=== PATIENT | female | born 1970 | race Native Hawaiian/Other Pacific Islander ===

== ENCOUNTER 2022-03-25 09:21 | Outpatient (CLI) | payer BC, SELFPAY ==
[2022-03-25 15:03] LABS: Chloride* 101 mmol/L (96-114); Potassium* 4.2 mmol/L (3.6-5.1); Sodium* 134 mmol/L (135-149)
[2022-03-25 15:05] LABS: Cholesterol* 209 mg/dL (90-199)
[2022-03-25 15:06] LABS: Blood Urea Nitrogen* 16 mg/dL (7-30); Calcium* 9.5 mg/dL (8.4-10.6); Carbon Dioxide* 27 mmol/L (20-32); Creatinine* 0.5 mg/dL (0.5-1.5); Estimated Glomerular Filt Rate 112 ml/min; Glucose* 181 mg/dL (60-115); HDL Cholesterol* 78 mg/dL (>=50); LDL Cholesterol Calculated 105 mg/dL (<100); Triglycerides* 128 mg/dL (40-149)
== END 2022-03-25 09:22 | disposition home or self-care (01) ==
LOC: LONREF 09:22
PROVIDERS: PCP Family Medicine; Visit Provider Family Medicine
DX: E78.5 Hyperlipidemia, unspecified (principal); E11.9 Type 2 diabetes mellitus without complications; I10 Essential (primary) hypertension
CPT/HCPCS: 80048; 80061

== ENCOUNTER 2023-02-19 14:33 | Outpatient (CLI) | payer BC, SELFPAY ==
--- NOTE | 2023-02-19 15:20 | CRLHL7_ITS ---
For Patients: As a result of the Cures Act, medical imaging exams and procedure reports are released immediately into your electronic medical record. You may view this report before your referring provider. If you have questions, please contact your health care provider. BILATERAL SCREENING MAMMOGRAM WITH COMPUTER-AIDED DETECTION AND TOMOSYNTHESIS TECHNIQUE: CC and MLO views were obtained. These mammographic images have been obtained using full-field digital technique. These mammographic images were interpreted with the benefit of computer-aided detection. Breast Tomosynthesis was used in this interpretation. COMPARISON FILM: 09/03/20, 06/25/16, 11/10/2014. FINDINGS: The breasts are heterogeneously dense, which may obscure small masses IMPRESSION: There is no radiographic evidence for malignancy. ASSESSMENT: BI-RADS Category 2: Benign RECOMMENDATION: Routine screening mammogram in 1 year. A lay language report of this examination will be provided to the patient. Yonathan Catalan M.D. Diagnostic/Nuclear Medicine Radiologist [email or web address] [place]/Dictated by: Yonathan Catalan MD @ 02/20/2023 9:12:00 AM (Electronically Signed)
== END 2023-02-19 14:34 | disposition home or self-care (01) ==
LOC: MAMMO 14:34
PROVIDERS: PCP Family Medicine; Visit Provider Family Medicine
DX: Z12.31 Encounter for screening mammogram for malignant neoplasm of breast (principal); R92.2 Inconclusive mammogram
CPT/HCPCS: 77063; 77067

== ENCOUNTER 2023-07-01 09:17 | Outpatient (CLI) | payer BC, SELFPAY | END 2023-07-01 09:18 | disposition home or self-care (01) | PROVIDERS: PCP Family Medicine; Visit Provider Family Medicine | DX: E11.9 Type 2 diabetes mellitus without complications (principal); E78.2 Mixed hyperlipidemia | CPT/HCPCS: 80048; 80061; 84681 ==

== ENCOUNTER 2024-09-05 09:21 | Outpatient (CLI) | payer BC, SELFPAY | END 2024-09-05 09:22 | disposition home or self-care (01) | PROVIDERS: PCP Family Medicine; Visit Provider Family Medicine | DX: I10 Essential (primary) hypertension (principal); E78.5 Hyperlipidemia, unspecified; E11.9 Type 2 diabetes mellitus without complications | CPT/HCPCS: 80048; 80061 ==

== ENCOUNTER 2025-04-27 04:40 | Emergency (ER) | payer BC, SELFPAY ==
--- OUTSIDE RECORDS SUMMARY | 2025-04-27 04:43 | XMS_ITS | Clinical Summary ---
Author Organization [facility] Address [address] [place] [address] Care Team Providers Care Paste Up Artist Name Role Phone Jacqueline Ojeda CELESTE Primary Care Provider [phone] Allergies No known active allergies Medications metFORMIN (GLUCOPHAGE) 1,000 mg tablet Take 1 tablet by mouth 2 times daily with meals. 0 05/01/2011 Active glipiZIDE (GLUCOTROL) 10 mg tablet Take 1 tablet by mouth 2 times daily before meals. 6 02/18/2018 Active Active Problems No known active problems Immunizations Immunization Administration Dates Next Due Influenza, IIV3 (Age >=3 years) 04/15/2012,05/28 Influenza, IIV4 07/15/2013 Influenza,CCIIV4 PRESERV FREE 06/19/2016 Pneumococcal Poly,23-Valent (Pneumovax) 10/06/19 14 Pneumococcal conj 13-Valent (Prevnar 13) 016 Td (Age >=7 Years) 04/10/2003 Tdap 11/20/2015,07/15/2013 Family History Medical History Relation Name Comments Cancer-breast No Family History Cancer-colon No Family History Cancer-ovarian No Family History Cancer-prostate No Family History Relation Name Status Comments Father (Age 40) accident - car Mother Alive Social History Tobacco Use Types Packs/Day Years Used Date Smoking Tobacco: Never Smokeless Tobacco: Never Alcohol Use Standard Drinks/Week Comments No 0 (1 standard drink = 0.6 oz pur e alcohol) Comments No Sex and Gender Information Value Date Recorded Sex Assigned at Not on file Legal Sex Female 6:28 AM [employer] Gender Identity Not on file Sexual Orientation Not on file Obstetrics History Para Term AB IAB SAB Ectopic Multiple Livin g Live Births 4 4 4 4 Date Outcome GA Total Labor Labor/2nd/3rd Weight Sex Type Anes PTL Giulia A1 A5 Name Clin Term Term Term Term Comments 4 vaginal deliveries - no co mplications Last Filed Vital Signs Vital Sign Reading Time Taken Comments Blood Pressure 156/88 04/27/2018 9:19 AM CDT Pulse 66 04/27/2018 9:14 AM CDT Temperature 36.6 C (97.8 F) 08/31/2013 9:47 AM [employer] Respiratory Rate - - Oxygen Saturation - - Inhaled Oxygen Concentration - - Weight 66.6 kg (146 lb 12.8 oz) 04/27/2018 9:14 AM CDT Height 158.3 cm (5' 2.32) 04/27/2018 9:14 AM CD T Body Mass Index 26.57 04/27/2018 9:14 AM CDT Plan of Treatment Health Maintenance Due Date Last Done Comments Depression screening for age 12+ 1980 HIV for age 15-65 1983 Hepatitis C screening for ag e 18-79 1986 Hepatitis B series for 19+ ( 1 of 3 - 19+ 3-dose series) 1987 Colonoscopy through age 75 2013 Lipids for age 45-75 2013 Zoster (shingles) series for age 50+ (1 of 2) 2018 BMI (ht and wt on same day) for age 18+ 04/27/2019 04/27/2018 Mammogram for age 45-75 05/11/2019 05/11/20 18, 09/05/2013, 05/25/2012, Additional history exists Pneumococcal series for age 50+ (3 of 3 - PCV20 or PCV21) 06/19/2021 06/19/2016, 10/05/2013 COVID-19 vaccine series ( season) 2025 Influenza Vaccine (#1) 2025 6, 07/15/2013, 04/15/2012, Additional history exists Tetanus booster 11/19/2025 11/20/2015, 07/03, 05/01/2005 (Completed outside of [facility]), Additional history exists Pap test for age 21-65 12/02/2025 3, 12/02/2022, 06/19/2021, Additional history exists RSV vaccine for adults or (1 - 1-dose 75+ series) 2043 Procedures Procedure Name Priority Date/Time Associated Diagnosis Comments HPV HIGH RISK Routine 12/02/2022 8:22 AM CDT XR MAMMO [place] BILAT SCREEN Routine 05/11/2018 9:05 AM CDT Encounter for screening mammogram for malignant neoplasm of breast from Last 3 Months or Most Recently Relevant to Health Maintenance Results * HPV HIGH RISK (12/02/2022 8:22 AM CDT) TYPE 16 Negative Negative 12/05/2022 11:02 AM CDT [facility] TYPE 18 Negative Negative 12/05/2022 11:02 AM CDT [facility] OTHER HIGH RISK TYPES Negative Negative 12/05/2022 11:02 AM CDT [facility] Other (Cervical) 12/02/2022 8:22 AM CDT 12/03/2022 12:43 PM CDT Narrative [facility] - 12/05/2022 11:02 AM CDT HPV types 16, 18, 31, 33, 35, 39, 45, 51, 52, 56, 58, 59, 66 and 68 DNA were undetectable or below the pre-set threshold. Methodology: Ar Jessie 4800 HPV Test us Kevin Jay MD MICROBIOLOGY Final Resul t [facility] [address] [place] [address], * XR MAMMO [place] BILAT SCREEN (05/11/2018 9:05 AM CDT) Anatomical Region Laterality Modality BREASTS, Breast Left, Breast Right Bilateral Mammography Impressions 05/11/2018 11:38 AM CDT There is no radiographic evidence for malignancy. Recommend annual mammograms. A lay language report of this examination will be provided to the patient. MAMMOGRAM ASSESSMENT: ACR 1 Negative Narrative 05/11/2018 11:38 AM CDT XR MAMMO [place] BILAT SCREEN [[id number]] CLINICAL HISTORY: This is an asymptomatic 47 y.o. patient. INDICATION FOR EXAM: Mammogram Screening. TECHNIQUE: CC & MLO views were obtained. This digital study was evaluated with the assistance of Computer-Aided Detection. Breast Tomosynthesis was used in interpretation. COMPARISON FILM: Yes 09/05/13 [facility] 05/25/12 [facility] FINDINGS: Mammographically, the breast tissue has scattered fibroglandular densities. There are no dominant masses, suspicious micro calcifications or areas of architectural distortion. us Orquidea Chun MD MAMMO Final Result from Last 3 Months or Most Recently Relevant to Health Maintenance Insurance [employer] Care Teams Paste Up Artist Relationship Specialty Start Date End Date Jacqueline Ojeda NP [address] [place] [id number] PCP - General Nurse Practitioner 04/27/18
--- OUTSIDE RECORDS SUMMARY | 2025-04-27 04:43 | XMS_ITS | Clinical Summary ---
Author Organization [facility] Address [address] [place] [address] Care Team Providers Care Remote Sensing Program Manager Name Role Phone Unavailable Primary Care Provider Unavailabl e Source Comments You are receiving this document as you are listed as the primary care provider,follow-up provider, or the patient has been referred to you for consultation.This is in compliance with the Medicare and[facility] EHR Incentive Program,which states Providers who transition their patient to another setting of careor provider of care or refers their patient to another provider of care shouldprovide summary care record for each transition of care or referral. [facility] Allergies No known active allergies Medications glipiZIDE (GLUCOTROL) 10 MG tablet Take 10 mg by mouth two times a day before meals. 11/30/19 21 Active metFORMIN (GLUCOPHAGE) 1000 MG tablet Take 1,000 mg by mouth two times a day with meals. 12/01/19 21 Active lisinopril (ZESTRIL) 5 MG tablet Take 5 mg by mouth daily. 01/06/20 21 Active dulaglutide (TRULICITY) 1.5 MG/0.5ML injeciton penIndications:Un controlled type 2 diabetes mellitus with hyperglycemia (HRC) Inject 1.5 mg subcutaneously once every week. 6 mL 1 01/15/20 21 Active Active Problems Problem Noted Date Diagnosed Date Uncontrolled type 2 diabetes mellitus with hyper glycemia 01/14/2021 Overweight (BMI 25.0-29.9) 01/14/2021 Social History Tobacco Use Types Packs/Day Years Used Date Smoking Tobacco: Never Smokeless Tobacco: Never Comments Unknown Sex and Gender Information Value Date Recorded Sex Assigned at Not on file Legal Sex Female 11:08 PM CDT Gender Identity Not on file Sexual Orientation Not on file Last Filed Vital Signs Vital Sign Reading Time Taken Comments Blood Pressure 144/78 01/14/2021 1:43 PM CDT Pulse 82 01/14/2021 1:43 PM CDT Temperature - - Respiratory Rate - - Oxygen Saturation - - Inhaled Oxygen Concentration - - Weight 68.5 kg (151 lb) 01/14/2021 1:43 PM CDT Height 157.5 cm (5' 2) 01/14/2021 1:43 PM CDT Body Mass Index 27.62 01/14/2021 1:43 PM CDT Plan of Treatment Health Maintenance Due Date Last Done Comments Cervical Cancer Screening Due 1968 Colon Cancer Screening Plan Due 1968 Diabetes: Albumin/Creatinine Ratio, Urine 1968 Diabetes: Creatinine 1968 Diabetes: Foot Exam 1968 Diabetes: Lipid Panel 1968 Hep C Screening (Preventive Services) 1968 Mammogram 1968 HIV Screening (Preventive Services) 1984 Adult Preventive Visit 1986 HepB Vaccine (1) 1987 Zoster/Shingles Vaccine (1 of 2) 2018 Pneumococcal Vaccine 50+ Yrs (3 of 3 - PCV20 or PCV21) 06/19/2021 06/19/2016, 10/05/2013 Diabetes: HGBA1C 07/16/2021 01/14/2021 Diabetes: Eye Exam 01/14/2022 01/14/2021 COVID-19 Vaccine ( season) 2025 12/07/2020, 11/16/2020 Influenza Vaccine (#1) 2025 , 07/18/2019, 06/19/2016, Additional history exists DTaP/Tdap/Td Vaccine (3 - Tdap) 11/19/2025 11/20/2015, 07/15/2013, 04/10/2003 HepA Vaccine Aged Out No longer eligi ble based on patient's age to complete this topic Hib Vaccine Aged Out No longer eligi ble based on patient's age to complete this topic IPV (Polio) Vaccine Aged Out No longe r eligible based on patient's age to complete this topic MCV4 Vaccine Aged Out No longer eligi ble based on patient's age to complete this topic Meningococcal B Vaccine Aged Out No l onger eligible based on patient's age to complete this topic Procedures Procedure Name Priority Date/Time Associated Diagnosis Comments POCT GLYCOSYLATED HEMOGLOBIN (HGB A1C) Routine 01/14/2021 2:05 PM CDT Uncontrolled type 2 diabetes mellitus with hyperglycemia (HRC) from Last 3 Months or Most Recently Relevant to Health Maintenance Results * (ABNORMAL) POCT glycosylated hemoglobin (Hb A1C) (01/14/2021 2:05 PM CDT) Hemoglobin A1C (Rapid) 11.9(A) <=5.6 % POCT Cartridge Lot# 800 POCT Blood 01/14/2021 2:05 PM CDT Robb Bowens MD ET POINT OF CARE TEST E NTER/EDIT ORDERABLES Final Result POCT from Last 3 Months or Most Recently Relevant to Health Maintenance Insurance [facility] [place] [address]
[2025-04-27 04:47] VITALS: BP 195/98; PULSE 82; RESP 16; TEMP 36.4; O2SAT 98; BMI 26.6
--- NOTE | 2025-04-27 04:52 | ED.BACK ---
HPI - Back Pain/Injury General Time Seen by Provider: 04:52 Date Seen: 04/27/25 Chief Complaint: Back Injury/Pain Stated Complaint: back/R Leg pain Time Seen by Provider: 04/27/25 04:52 Source: patient Mode of arrival: ambulatory Limitations: no limitations History of Present Illness HPI Narrative: 54-year-old female comes in today with back pain. Patient notes right low back pain radiating to the right leg going on for about 2 weeks, no specific injury but seems to have started after some increased activity. Had similar in the past and had what sounds like an epidural injection with improvement. No bowel or bladder incontinence, pain is worse with trying stand up, describes numbness in the right leg but no weakness. Related Data Previous Rx's ?Medication ?Instructions ?Recorded lisinopril 5 mg tablet 5 mg PO QDAY #90 tabs 01/12/24 insulin glargine 100 unit/mL (3 10 unit (0.1 mL) subcut QPM #9 mL 05/05/24 mL) subcutaneous pen (Lantus Solostar U-100 Insulin) dulaglutide 1.5 mg/0.5 mL 1.5 mg (0.5 mL) subcut QWEEK #2 mL 09/05/24 subcutaneous pen injector (Trulicity) atorvastatin 10 mg tablet 10 mg PO QPM #90 tabs 11/30/24 glipizide 10 mg tablet 10 mg PO BID #180 tabs 01/23/25 metformin 1,000 mg tablet 1,000 mg PO BIDWMEAL #180 tabs 02/07/25 gabapentin 300 mg capsule 300 mg PO TID #30 caps 04/27/25 Allergies Allergy/AdvReac Type Severity Reaction Status Date / Time No Known Allergies Allergy Verified 04/27/25 04:50 [facility] Medical History Type 2 diabetes mellitus ?E11.9 - Type 2 diabetes mellitus without complications (ICD-10) Type 1 diabetes ?E10.9 - Type 1 diabetes mellitus without complications (ICD-10) Hypertension ?I10 - Essential (primary) hypertension (ICD-10) Hyperlipidemia ?E78.5 - Hyperlipidemia, unspecified (ICD-10) Tendinitis of right rotator cuff ?M75.81 - Other shoulder lesions, right shoulder (ICD-10) Back pain with radiculopathy ?M54.10 - Radiculopathy, site unspecified (ICD-10) Microalbuminuria ?R80.9 - Proteinuria, unspecified (ICD-10) HPV test positive Surgical History History of breast biopsy ?Z98.890 - Other specified postprocedural states (ICD-10) Social History Smoking Status: Never smoker How often do you have a drink containing alcohol: never AUDIT-C Alcohol total score: 0 Non-prescribed substance use: denies use Exam Narrative: Exam Narrative: General: well nourished , NAD Head: Atraumatic and normocephalic ENT: External ears and external nose are normal Eyes: Conjunctiva clear, pupils are equal reactive, external ocular motions are intact Neck: Full spontaneous range of motion of the neck Lungs: No respiratory distress Musculoskeletal: Right sciatic tenderness, strength and sensation of the right lower extremity intact Neurologic: No gross focal neurologic deficits Skin: No rashes Psych: Mood and affect are appropriate Const: Vital Signs, click to edit/add: Vital Signs - 24 hr 04/27/25 04:47 Temperature 97.6 F Pulse Rate [Pulse Oximeter] 82 Respiratory Rate 16 Blood Pressure [Ri ght Upper Arm] 195/98 H Pulse Oximetry 98 Oxygen Delivery Me thod Room Air Course Course ED Course: Reviewed prior urgent care note from April 17 when patient was seen for this same problem, at that time prescribed prednisone burst and taper with instructions to follow-up. Seen in urgent care again yesterday with continued pain, instructed to follow-up with orthopedics. Patient presents today with right low back pain radiating into the right leg. This has been going on for about 2 weeks, no specific injury. No bowel or bladder incontinence, no fever or chills. Patient is on a prednisone taper right now with minimal improvement. On exam vital is stable, right sciatic tenderness, strength and sensation of the extremities intact, no bowel or bladder incontinence, no red flag symptoms to suggest need for emergent MRI at this time. Patient is given Toradol in the emergency department, continue prednisone, we discharged with gabapentin and [facility], should follow-up with [facility] where she has been seen previously for consideration for epidural. Vital Signs Vital signs: Initial Vital Signs Temperature 97.6 F 04/27/25 04:47 Temperature Source Temporal Artery Scan 04/27/25 04:47 Pulse Rate 82 04/27/25 04:47 Respiratory Rate 16 04/27/25 04:47 Blood Pressure 195/98 H 04/27/25 04:47 Blood Pressure Mean 130 H 04/27/25 04:47 Blood Pressure Position Sitting 04/27/25 04:47 Pulse Oximetry 98 04/27/25 04:47 Oxygen Delivery Method Room Air 04/27/25 04:47 Vital Signs Temperature 97.6 F 04/27/25 04:47 Pulse Rate 82 04/27/25 04:47 Respiratory Rate 16 04/27/25 04:47 Blood Pressure 195/98 H 04/27/25 04:47 Pulse Oximetry 98 04/27/25 04:47 Oxygen Delivery Method Room Air 04/27/25 04:47 Temperature 97.6 F 04/27/25 04:47 Pulse Rate 82 04/27/25 04:47 Respiratory Rate 16 04/27/25 04:47 Blood Pressure 195/98 H 04/27/25 04:47 Pulse Oximetry 98 04/27/25 04:47 Oxygen Delivery Method Room Air 04/27/25 04:47 Discharge Plan Discharge Clinical Impression: Back pain with radiculopathy Patient Disposition: Home, Self-Care Condition: Stable Instructions: Lumbar Radiculopathy (ED) Additional Instructions: Continue Tylenol and ibuprofen for pain Start gabapentin in the morning Contact to your spine clinic for further evaluation and treatment Activity Level: Activity as Tolerated Discharge Diet: Regular Prescriptions: New gabapentin 300 mg capsule 300 mg PO TID Qty: 30 0RF No Action lisinopril 5 mg tablet 5 mg PO QDAY Qty: 90 3RF Trulicity 1.5 mg/0.5 mL pen injector 1.5 mg subcut QWEEK Qty: 2 5RF insulin glargine [Lantus Solostar U-100 Insulin] 100 unit/mL (3 mL) insulin pen 10 unit subcut QPM Qty: 9 3RF atorvastatin 10 mg tablet 10 mg PO QPM Qty: 90 0RF glipizide 10 mg tablet 10 mg PO BID Qty: 180 0RF metformin 1,000 mg tablet 1,000 mg PO BIDWMEAL Qty: 180 0RF Follow Up/Referrals: Kevin Jay MD [Primary Care Provider, Family Practice] Stand Alone Forms: [employer] Info Instructions
== END 2025-04-27 05:22 | disposition home or self-care (01) ==
PROVIDERS: Emergency Provider Family Medicine; PCP Family Medicine
DX: M54.16 Radiculopathy, lumbar region (principal)
CPT/HCPCS: 96372; 99283; J1885

== ENCOUNTER 2025-05-02 09:06 | Outpatient (CLI) | payer BC, SELFPAY | END 2025-05-02 09:07 | disposition home or self-care (01) | PROVIDERS: PCP Family Medicine; Visit Provider Family Medicine | DX: Z13.29 Encounter for screening for other suspected endocrine disorder (principal); E11.9 Type 2 diabetes mellitus without complications | CPT/HCPCS: 80048; 84443 ==

== ENCOUNTER 2025-05-11 07:52 | Outpatient (CLI) | payer BC, SELFPAY ==
--- NOTE | 2025-05-11 08:15 | CRLHL7_ITS ---
For Patients: As a result of the Century Cures Act, medical imaging exams and procedure reports are released immediately into your electronic medical record. You may view this report before your referring provider. If you have questions, please contact your health care provider. Indication: Unspecified injury of right lower leg. Known spondylolisthesis. Suspected spinal stenosis. Technique: Multiplanar, multisequence, MRI of the lumbar spine, obtained without contrast. Comparison: Lumbar spine x-ray 01/17/2025 Findings: For numbering purposes, the S1 segment is partially lumbarized, followed by a rudimentary S1-S2 intervertebral disc. Preserved lumbar lordosis. Grade 1 anterolisthesis at L4-5 and L5-S1. Diminutive/poorly visualized left L5-S1 facet joint, presumably on a congenital basis. No acute osseous abnormality or suspicious bone marrow lesion. Conus medullaris terminates at L1-2. No concerning findings in the paravertebral soft tissues. Incidental partially visualized uterine fibroids. Included SI joints are unremarkable. T12-L1 through L3-L4: No neural foraminal or spinal canal stenosis. L4-L5: Mild diffuse disc bulge, moderate facet arthropathy. Mild bilateral neural foraminal narrowing. Mild-moderate spinal canal narrowing. L5-S1: Diffuse disc bulge, advanced right facet arthropathy, hypoplastic left facet joint. Mild-moderate bilateral neural foraminal narrowing. Mild spinal canal narrowing with lateral recess stenosis impinging the descending bilateral S1 nerve roots. S1-S2: Partially lumbarized S1 segment, rudimentary intervertebral disc. No neural foraminal or spinal canal stenosis. Impression: 1. Congenitally hypoplastic left L5-S1 facet joint. Partially lumbarized S1 segment with rudimentary S1-S2 intervertebral disc. 2. Lumbar spondylosis with low-grade spondylolisthesis as detailed. 3. At L4-L5, mild-moderate spinal canal narrowing. 4. At L5-S1, mild-moderate bilateral neural foraminal narrowing, with lateral recess stenosis impinging the descending bilateral S1 nerve roots. Dictated by Toya Son MD @ 05/12/2025 10:38:43 AM (Electronically Signed)
== END 2025-05-11 07:53 | disposition home or self-care (01) ==
LOC: MRI 07:52
PROVIDERS: PCP Family Medicine; Visit Provider Family Medicine
DX: M43.16 Spondylolisthesis, lumbar region (principal); M51.26 Other intervertebral disc displacement, lumbar region; M51.27 Other intervertebral disc displacement, lumbosacral region
CPT/HCPCS: 72148